=== PATIENT | female | born 1945 | race Caucasian/White ===

== ENCOUNTER 2017-05-08 12:43 | Emergency (ER) | payer MEDICARE ==
[~2017-05-08] VITALS: Ht 162.6 cm; Wt 56.8 kg
[~2017-05-08 12:43] MED LIST: ASPI-628 PO; ATRV10T PO; CHOL10002 PO; CYAN50TA2 PO; LISI10TA2 PO; MULT-621 PO; OMEG300C3 PO; UBID100C16 PO
[2017-05-08 12:50] VITALS: BP 147/75; PULSE 69; RESP 20; O2SAT 98
[2017-05-08 12:57] VITALS: BP 133/82; PULSE 65; RESP 15; O2SAT 95
[2017-05-08 13:15] LABS: BASOPHILS % (AUTO) 0.3 % (0-3); EOSINOPHILS % (AUTO) 3.8 % (0-5); MONOCYTES % (AUTO) 7.7 % (4-12); Mean Corpuscular Hemoglobin 31.2 pg (27.0-35.0); Mean Corpuscular Volume 91.5 fL (81-100); NEUTROPHILS % (AUTO) 55.8 % (40-74); Platelet Count 169 bil/L (150-400)
--- NOTE | 2017-05-08 13:25 | ED.REPORT ---
HPI-Chest Pain 40 and Over Date of Service May 08, 2017 ED Provider: Angie Longo MD 71-year-old very active female with past medical history of CAD with stent placement 2009 presents to the emergency department today for chest pain. Patient states this pain has been intermittent for the past 2 days. Pain is sharp 3/10 that does not radiate. Her pain is not reproducible, and does not increase with deep respirations. The patient states that she had a her cuff repair on the left shoulder in 2012 which was "not very successful" and she believes her pain may be attributed to this injury however want to come to emergency department to rule out any other cardiac issues. This is a very active 71-year-old female who was recently completed multiple cross-country biking/hiking trips. Echo was done in March by Dr. Angel and seen to be normal. She denies shortness of breath, nausea, vomiting. Nursing Notes Stated Complaint: HEART PAIN/TIRED Chief Complaint: Chest Pain Nursing Notes Reviewed: Yes Allergies: Coded Allergies: acetaminophen (Verified Adverse Reaction, Severe, N&V (W/ 10/325--CAN TAKE LOWER DOSAGE PERCOCET), 05/08/17) oxycodone HCl (Verified Adverse Reaction, Severe, N&V (W/ 10/325--CAN TAKE LOWER DOSAGE PERCOCET), 05/08/17) Scheduled Atorvastatin (Lipitor) 10 Mg Tab 20 MG PO DAILY Cholecalciferol (Vitamin D3) 1,000 Unit Tablet 1,000 UNIT PO DAILY Cyanocobalamin (Vitamin B-12) (Vitamin B-12) 50 Mcg Tablet Unknown Dose PO DAILY Lisinopril (Lisinopril) 10 Mg Tablet 10 MG PO BID Multivitamin with Minerals (Multiple Vitamin) 1 Each Tablet 1 EACH PO DAILY Jerome-3 Fatty Acids (Fish Oil) 300 Mg Capsule Unknown Dose PO DAILY Ubidecarenone (Coq-10) 100 Mg Capsule 100 MG PO DAILY Miscellaneous Medications Aspirin (Aspir 81) 81 Mg Tablet. 81 MG PO General Time Seen by MD: 13:05 Chief Complaint Chest pain Sudden in Onset?: No Onset Occurred: 2 days ago Symptom Duration: Intermittent Location: : Chest left Severity: Current: Pain level 3 out of 10 Risk Factors )( CAD Risk Stratification Risk factors reviewed )( TAD Risk Stratification Risk factors reviewed )( PE Risk Stratification Risk factors reviewed Past Medical History Past Medical History CAD Stent placement 2009 Smoking History Never Smoker Review of Systems Constitutional: Denies: Chills, Fever Cardiovascular: Reports: Chest pain GI: Denies: Abdominal pain Musculoskeletal: Denies: Back pain Neurologic: Reports: Dizziness, Denies: Change LOC, Headache, Lightheaded Complete sys rev & neg: except as marked. Physical Exam Initial Vital Signs Vital Signs (First) Date Time Temp Pulse Resp B/P Pulse Ox O2 Delivery O2 Flow Rate FiO2 05/08/17 12:50 36.8 69 20 147/75 98 Room Air Initial VS: Reviewed, Vital signs normal Head / Eyes: Atraumatic, Normocephalic, PERRL ENT: Mucous membranes moist, Conjunctiva normal, No scleral icterus Neck: Supple, Non-tender, Full range of motion Extremities: Vascular intact, Neuro intact, No swelling, No tenderness Skin: Warm, Dry, No cyanosis Neurologic: Alert, Oriented, Nonfocal Psychiatric: Mood/affect normal, Behavior normal, Normal thought content Respiratory / Chest: Atraumatic, Breath sounds NL, Breath sounds = bilat, No respiratory distress, No rales, No rhonchi, No wheezing, No retractions, No chest tenderness Cardiovascular: Heart rate NL, Regular rhythm, Heart sounds NL, No gallop, No murmurs, No rubs, Peripheral circulation NL Interpretation & Diagnostics Lab Results Interpretation Result Diagram: 05/08/17 1300 05/08/17 1300 Test 05/08/17 13:00 White Blood Count 6.1th/mm3 (3.8-10.1) Red Blood Count 4.49mil/mm3 (3.90-5.20) Hemoglobin 14.0g/dL (12.0-15.6) Hematocrit 41.1% (35.0-46.0) Mean Corpuscular Volume 91.5fL (81-100) Mean Corpuscular Hemoglobin 31.2pg (27.0-35.0) Mean Corpuscular Hemoglobin Concent 34.1% (32.0-37.0) Red Cell Distribution Width 12.5% (12.3-15.4) Platelet Count 169bil/L (150-400) Neutrophils (%) (Auto) 55.8% (40-74) Lymphocytes (%) (Auto) 32.1% (14-46) Monocytes (%) (Auto) 7.7% (4-12) Eosinophils (%) (Auto) 3.8% (0-5) Basophils (%) (Auto) 0.3% (0-3) Sodium Level 138mEq/L (134-144) Potassium Level 4.7mEq/L (3.5-5.2) Chloride Level 100mEq/L (97-108) Carbon Dioxide Level 23mmol/L (18-29) Blood Urea Nitrogen 29mg/dL (8-27) Creatinine 0.87mg/dL (0.57-1.00) Estimat Glomerular Filtration Rate 92mL/min (>59) Glucose Level 121mg/dL (60-99) Calcium Level 9.6mg/dL (8.5-10.1) Magnesium Level 2.2mg/dL (1.6-2.6) Total Bilirubin 0.4mg/dL (0.0-1.2) Aspartate Amino Transf (AST/SGOT) 30U/L (0-50) Alanine Aminotransferase (ALT/SGPT) 21U/L (0-32) Alkaline Phosphatase 77U/L (25-165) Troponin T < 0.010ug/L (0.0-0.011) Total Protein 7.0g/dL (6.4-8.4) Albumin 4.1g/dL (3.4-5.0) Lab Results Interpretation: Insignificant lab findings ECG Interpretation ECG Interpretation: Minor J-point elevation in lead 3, however no ST depression or elevation is noted in any other leads. Interpreted by: ED physician Normal ECG Interpretation: Normal ECG w/ rate of... (61), Normal rate, Normal sinus rhythm, No acute ischemic changes, Normal QRS, Normal axis, Normal intervals, No change from prior ECGs Re-Eval/Medical Decision Med Decision/Clinical Course Labs and not indicative of any evidence related to cardiac pathology at this time. EKG was normal with minimal J-wave elevations, however, this was not reciprocated in any other leads. She is a very active woman, does not report any chest pain with Discharge & Departure Primary Impression: Chest pain Chest pain type: unspecified Qualified Code: R07.9 - Chest pain, unspecified Additional Impression: Non-cardiac chest pain Disposition: Home Discharge Condition All VS Reviewed: Yes Condition: Stable Patient Instructions: Chest Pain (ED) Additional Instructions: You came to the emergency department today with concern for chest pain. On the labs and studies were able to do here in the emergency department it appears that there is no specific reason that we could point to as to the culprit for your chest pain. Your EKG showed no significant changes, your cardiac markers were negative, this combined with your history of recent strenuous exercise without cardiac complications leads me to believe her chest pain is noncardiac in nature. 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 Please return to the emergency department if your symptoms become acutely worse. Referrals: Chin Dubose MD (PCP) Attending Statement Patient seen and examined Presents with intermittent sharp stabbing chest pain. Does not seem to be associated with exercise and she continues to exercise quite successfully pain- free Greater than 48 hours of symptoms and a negative troponin in light of noncardiac description of pain, normal echo in October and low risk sestamibi study in 2013 I believe that this diagnosis today is going to be noncardiac chest pain. Agree with documentation as above copies to: Chin Dubose MD; Alexandre Angel MD, Adam J DO May 08, 2017 13:20 Angie Longo MD May 08, 2017 14:46
--- NOTE | 2017-05-08 13:29 | DRSVH ---
PROCEDURE: X-RAY CHEST ONE VIEW, PORTABLE ([id number]) INDICATIONS: Chest pain. TECHNIQUE: One view of the chest was acquired. COMPARISON: [facility], , CHEST 1VW (PORTABLE), 10/07/2010, 13:30. FINDINGS: Surgical changes and devices: None. Lungs and pleura: The aeration of the lungs is similar to the prior exam with findings that are suspi cious for mild pulmonary hyperexpansion. There is no focal consolidation, effusion, or pneumothorax. Mediastinum: Mediastinal contours appear normal. Heart size is normal. There is aortic atheroscler osis. Bones and chest wall: No suspicious bony lesions. Widening of the right acromial clavicular joint m ay be postoperative or related to previous trauma. Degenerative changes of the spine and shoulders a re noted. There is dextroscoliosis of the lumbar spine, not adequately evaluated. The bone minerali zation may be decreased. Overlying soft tissues appear unremarkable. IMPRESSION: Stable chest. No acute cardiopulmonary process is evident. Dictated by: Francis Sanchez M.D. on 05/08/2017 at 12:25 Approved by: Francis Sanchez M.D. on 05/08/2017 at 12:27
[2017-05-08 13:39] LABS: TROPONIN T < 0.010 ug/L (0.0-0.011)
[2017-05-08 13:48] LABS: Magnesium 2.2 mg/dL (1.6-2.6)
[2017-05-08 14:57] VITALS: BP 127/88; PULSE 63; O2SAT 97
== END 2017-05-08 14:58 | disposition home or self-care (01) ==
LOC: SED 12:43
DX: R07.89 Other chest pain (principal); I25.10 Atherosclerotic heart disease of native coronary artery without angina pectoris; Z95.5 Presence of coronary angioplasty implant and graft; Z88.6 Allergy status to analgesic agent; Z88.5 Allergy status to narcotic agent